=== PATIENT | female | born 1995 | race Hispanic/Latino ===

== ENCOUNTER 2023-03-25 09:03 | Inpatient (IN) | payer BC ==
[~2023-03-25] VITALS: Ht 162.6 cm; Wt 84.1 kg
[2023-03-25] MEDS ORDERED: 0.9%NACL 1000ML 1,000 ML IV ONE (09:30)
[2023-03-25] MEDS ORDERED: ONDANSETRON 4MG INJ IVP ONE (09:30)
[2023-03-25 09:44] LABS: APPEARANCE,URINE CLOUDY (CLEAR); BILIRUBIN,URINE 0.5 mg/dL (NEGATIVE); COLOR,URINE YELLOW (YELLOW); GLUCOSE, URINE (UA) 150 mg/dL (NEGATIVE); KETONES,URINE 60 mg/dL (NEGATIVE); LEUKOCYTE ESTERASE ,URINE 25 Leu/uL (NEGATIVE); NITRATE,URINE NEGATIVE (NEGATIVE); OCCULT BLOOD,URINE MODERATE (NEGATIVE); PROTEIN,URINE 30 mg/dL (NEGATIVE); UROBILINOGEN,URINE 0.2 mg/dL (0.2-1.0)
[2023-03-25 09:53] LABS: BACTERIA,URINE FEW /HPF (None Seen); MUCUS,URINE MANY LPF (None Seen); SQUAMOUS EPITHELIAL CELL,UR MANY /HPF (0-2)
[2023-03-25 10:16] LABS: BASOPHILS % (AUTO) 0.3 % (0.0-5.0); CREATININE 0.6 mg/dL (0.5-1.5); EOSINOPHILS % (AUTO) 0.5 % (0.0-8.0); HEMATOCRIT 36.4 % (36-48); LYMPHOCYTES % (AUTO) 17.3 % (21.0-51.0); MEAN CORPUSCULAR HEMOGLOBIN 31.5 pg (27.0-33.0); MEAN CORPUSCULAR HGB CONC 34.6 g/dL (32.0-36.0); MONOCYTES % (AUTO) 8.3 % (3.0-13.0); NEUTROPHILS % (AUTO) 73.3 % (40.0-77.0); PLATELET COUNT (AUTO) 161 K/uL (130-400); POTASSIUM 4.6 mmol/L (3.5-5.1); WHITE BLOOD COUNT (AUTO) 9.1 K/uL (4.8-10.8)
[2023-03-25 10:22] LABS: ALBUMIN 3.4 g/dL (3.5-5.0); TOTAL PROTEIN, SERUM 7.1 g/dL (6.0-8.3)
[2023-03-25] MEDS ORDERED: MORPHINE 4 MG SYG IVP STA (11:13)
[2023-03-25] MEDS ORDERED: ONDANSETRON 4MG INJ IVP STA (11:13)
[2023-03-25] MEDS ORDERED: MORPHINE 2 MG SYG IVP ONE (14:30)
[2023-03-25] MEDS: CEFTRIAXONE 1G VIAL IV SCH (18:13)
[2023-03-25] MEDS: LACTATED RINGERS 1000ML 1,000 ML IV SCH ×2 (18:13→20:20)
[2023-03-25] MEDS: ONDANSETRON 4MG INJ IV PRN (18:18)
[2023-03-25] MEDS: METRONIDAZOLE 250MG/50ML 50 ML IV SCH (20:20)
[2023-03-25] MEDS: MORPHINE 2 MG SYG IVP PRN (22:54)
[2023-03-25 23:30] VITALS: BP 127/73
[2023-03-26] MEDS: ACETAMINOPHEN 325 MG TAB PO PRN ×2 (00:28→17:26)
[2023-03-26] MEDS ORDERED: METRONIDAZOLE 500MG/100ML BAG 100 ML ONE (00:55)
[2023-03-26] MEDS: METRONIDAZOLE 250MG/50ML 50 ML IV SCH ×3 (00:57→17:26)
[2023-03-26] MEDS ORDERED: NORE-89 PO (01:04)
[2023-03-26 03:53] VITALS: BP 127/63
[2023-03-26 05:20] LABS: HEMATOCRIT 30.9 % (36-48); MEAN CORPUSCULAR VOLUME 91.2 fL (79-99); RED BLOOD CELL COUNT(AUTO) 3.39 MIL/uL (4.00-5.50); RED CELL DISTRIBUTION WIDTH 13.2 % (11.0-15.5); WHITE BLOOD COUNT (AUTO) 5.5 K/uL (4.8-10.8)
[2023-03-26 05:36] LABS: BILIRUBIN,DIRECT 1.3 mg/dL (0.0-0.3); MAGNESIUM 1.6 mg/dL (1.80-2.40); TOTAL PROTEIN, SERUM 6.2 g/dL (6.0-8.3)
[2023-03-26] MEDS: ONDANSETRON 4MG INJ IV PRN ×2 (05:47→20:35)
[2023-03-26] MEDS: MORPHINE 2 MG SYG IVP PRN ×2 (06:18→20:37)
[2023-03-26] MEDS ORDERED: POTASSIUM CHLORIDE 10% ELIXIR 20 MEQ/15 ML UDCUP PO PRN (07:30)
[2023-03-26] MEDS ORDERED: POTASSIUM CHLORIDE 20MEQ/100ML 100 ML IV PRN (07:30)
[2023-03-26 08:42] VITALS: BP 130/61
[2023-03-26] MEDS: LACTATED RINGERS 1000ML 1,000 ML IV SCH ×2 (10:01→23:27)
[2023-03-26] MEDS: MAGNESIUM 2GM PREMIX 50ML 50 ML IV PRN (10:09)
[2023-03-26 11:43] VITALS: BP 127/66
[2023-03-26] MEDS ORDERED: COMPOUND IV MISC 1 EACH IVSOLN MISC PRN (12:00)
[2023-03-26] MEDS ORDERED: GADOTERATE MEGLUMINE 10 MMOL/20 ML VIAL IV ONE (13:13)
[2023-03-26 16:00] VITALS: BP 142/85
[2023-03-26] MEDS: CEFTRIAXONE 1G VIAL IV SCH (17:26)
[2023-03-26 20:00] VITALS: BP 97/53
[2023-03-27] VITALS: BP 121/71
[2023-03-27] MEDS: METRONIDAZOLE 250MG/50ML 50 ML IV SCH ×3 (01:02→17:30)
[2023-03-27] MEDS: MORPHINE 2 MG SYG IVP PRN ×3 (01:29→23:21)
[2023-03-27 04:15] VITALS: BP 120/70
[2023-03-27 06:42] LABS: BASOPHILS % (AUTO) 0.4 % (0.0-5.0); EOSINOPHILS % (AUTO) 1.6 % (0.0-8.0); HEMATOCRIT 31.2 % (36-48); LYMPHOCYTES % (AUTO) 35.9 % (21.0-51.0); MEAN CORPUSCULAR HEMOGLOBIN 30.9 pg (27.0-33.0); MEAN CORPUSCULAR HGB CONC 33.7 g/dL (32.0-36.0); MEAN CORPUSCULAR VOLUME 91.8 fL (79-99); MONOCYTES % (AUTO) 12.1 % (3.0-13.0); NEUTROPHILS % (AUTO) 49.8 % (40.0-77.0); PLATELET COUNT (AUTO) 248 K/uL (130-400); RED CELL DISTRIBUTION WIDTH 13.5 % (11.0-15.5); WHITE BLOOD COUNT (AUTO) 5.7 K/uL (4.8-10.8)
[2023-03-27 07:00] LABS: ALBUMIN 3.1 g/dL (3.5-5.0); BILIRUBIN,DIRECT 1.7 mg/dL (0.0-0.3); TOTAL PROTEIN, SERUM 6.5 g/dL (6.0-8.3)
[2023-03-27 07:13] LABS: INR 0.96 (0.85-1.15); PROTHROMBIN TIME 10.5 SEC (9.6-11.6)
[2023-03-27] MEDS ORDERED: IOHEXOL-350 50ML VIAL IV ONE (07:57)
[2023-03-27] MEDS: LACTATED RINGERS 1000ML 1,000 ML IV SCH ×2 (09:00→19:00)
[2023-03-27 09:10] VITALS: BP 120/70
[2023-03-27] MEDS ORDERED: PROPOFOL 10 MG/ML 20ML VIAL IV ONE ×2 (09:24→09:36)
[2023-03-27] MEDS ORDERED: MIDAZOLAM HCL 1 MG/ML 2ML VIAL ONE (09:24)
[2023-03-27] MEDS ORDERED: SUCCINYLCHOLINE 200MG/10ML SYR ONE (09:25)
[2023-03-27] MEDS ORDERED: FENTANYL CITRATE PF 50 MCG/1 ML 2ML VIAL ONE (09:26)
[2023-03-27] MEDS ORDERED: MEPERIDINE-PF 25 MG/ML SYG ONE (10:52)
[2023-03-27 12:00] VITALS: BP 116/54
[2023-03-27] MEDS ORDERED: HYDROMORPHONE 0.5 MG SYG (0.5MG/0.5ML) IVP ONE (15:30)
[2023-03-27] MEDS ORDERED: 0.9%NACL 1000ML 1,000 ML IV ONE (15:58)
[2023-03-27 16:00] VITALS: BP 120/75
[2023-03-27] MEDS: CEFTRIAXONE 1G VIAL IV SCH (17:29)
[2023-03-27 20:00] VITALS: BP 125/73
[2023-03-27] MEDS: ONDANSETRON 4MG INJ IV PRN (23:21)
[2023-03-28] VITALS (23 sets, daily range): BP systolic 99–137; BP diastolic 41–76
[2023-03-28] MEDS: METRONIDAZOLE 250MG/50ML 50 ML IV SCH ×3 (01:13→17:54)
[2023-03-28] MEDS ORDERED: HYDROMORPHONE 0.5 MG SYG (0.5MG/0.5ML) IVP ONE (02:30)
[2023-03-28 05:55] LABS: BASOPHILS % (AUTO) 0.3 % (0.0-5.0); EOSINOPHILS % (AUTO) 0.9 % (0.0-8.0); HEMATOCRIT 30.6 % (36-48); LYMPHOCYTES % (AUTO) 26.5 % (21.0-51.0); MEAN CORPUSCULAR HEMOGLOBIN 31.7 pg (27.0-33.0); MEAN CORPUSCULAR HGB CONC 35.3 g/dL (32.0-36.0); MEAN CORPUSCULAR VOLUME 89.7 fL (79-99); MONOCYTES % (AUTO) 10.4 % (3.0-13.0); NEUTROPHILS % (AUTO) 61.8 % (40.0-77.0); PLATELET COUNT (AUTO) 238 K/uL (130-400); RED BLOOD CELL COUNT(AUTO) 3.41 MIL/uL (4.00-5.50); RED CELL DISTRIBUTION WIDTH 13.2 % (11.0-15.5); WHITE BLOOD COUNT (AUTO) 6.9 K/uL (4.8-10.8)
[2023-03-28] MEDS: LACTATED RINGERS 1000ML 1,000 ML IV SCH ×2 (06:34→16:14)
[2023-03-28 06:38] LABS: ALBUMIN 3.2 g/dL (3.5-5.0); CREATININE 0.6 mg/dL (0.5-1.5); MAGNESIUM 1.8 mg/dL (1.80-2.40); POTASSIUM 3.2 mmol/L (3.5-5.1); TOTAL PROTEIN, SERUM 6.6 g/dL (6.0-8.3)
[2023-03-28] MEDS ORDERED: PROPOFOL 10 MG/ML 20ML VIAL IV ONE (08:55)
[2023-03-28] MEDS ORDERED: MIDAZOLAM HCL 1 MG/ML 2ML VIAL ONE (08:55)
[2023-03-28] MEDS ORDERED: ONDANSETRON 4MG INJ ONE ×3 (08:55→12:33)
[2023-03-28] MEDS ORDERED: FENTANYL CITRATE PF 50 MCG/1 ML 2ML VIAL ONE ×2 (08:56→10:28)
[2023-03-28] MEDS ORDERED: ROCURONIUM 10MG/1ML SYR 10 MG/ML ML ONE (08:56)
[2023-03-28] MEDS ORDERED: ROPIVACAINE 0.5% 5MG/ML 30ML IJ ONE (09:29)
[2023-03-28] MEDS ORDERED: INDOCYANINE GREEN 25 MG VIAL IJ ONE (09:36)
[2023-03-28] MEDS ORDERED: DEXAMETHASONE SOD PHOSPHATE 10MG/ML 1ML VIAL ONE (10:27)
[2023-03-28] MEDS ORDERED: DEXAMETHASONE SOD PHOSPHATE 4 MG/ML 1ML VIAL ONE (10:28)
[2023-03-28] MEDS ORDERED: CEFAZOLIN SODIUM 1 GM VIAL ONE (10:28)
[2023-03-28] MEDS ORDERED: GLYCOPYRROLATE 1 MG/5 ML SYRINGE ONE (11:43)
[2023-03-28] MEDS ORDERED: NEOSTIGMINE 5MG/5ML SYR IV ONE (11:44)
[2023-03-28] MEDS: MORPHINE 2 MG SYG IVP PRN ×2 (15:16→19:31)
[2023-03-28] MEDS: CEFTRIAXONE 1G VIAL IV SCH (16:10)
[2023-03-28] MEDS: KCL 20 MEQ ERTAB PO PRN (17:56)
[2023-03-29] VITALS: BP 130/74
[2023-03-29] MEDS: MORPHINE 2 MG SYG IVP PRN ×2 (00:13→03:57)
[2023-03-29] MEDS: LACTATED RINGERS 1000ML 1,000 ML IV SCH (01:52)
[2023-03-29] MEDS: METRONIDAZOLE 250MG/50ML 50 ML IV SCH ×2 (01:53→08:27)
[2023-03-29 04:00] VITALS: BP 134/71
[2023-03-29 06:02] LABS: BASOPHILS % (AUTO) 0.1 % (0.0-5.0); HEMATOCRIT 31.7 % (36-48); LYMPHOCYTES % (AUTO) 14.8 % (21.0-51.0); MEAN CORPUSCULAR HEMOGLOBIN 31.5 pg (27.0-33.0); MEAN CORPUSCULAR HGB CONC 34.4 g/dL (32.0-36.0); MEAN CORPUSCULAR VOLUME 91.6 fL (79-99); MONOCYTES % (AUTO) 10.6 % (3.0-13.0); PLATELET COUNT (AUTO) 262 K/uL (130-400); RED BLOOD CELL COUNT(AUTO) 3.46 MIL/uL (4.00-5.50); RED CELL DISTRIBUTION WIDTH 13.4 % (11.0-15.5); WHITE BLOOD COUNT (AUTO) 8.5 K/uL (4.8-10.8)
[2023-03-29 06:30] LABS: BILIRUBIN,DIRECT 0.9 mg/dL (0.0-0.3); CREATININE 0.6 mg/dL (0.5-1.5); MAGNESIUM 1.8 mg/dL (1.80-2.40); POTASSIUM 3.5 mmol/L (3.5-5.1); TOTAL PROTEIN, SERUM 6.6 g/dL (6.0-8.3)
[2023-03-29 08:00] VITALS: BP 121/70
[2023-03-29] MEDS: KCL 20 MEQ ERTAB PO PRN ×2 (08:27→10:36)
[2023-03-29] MEDS: MAGNESIUM 2GM PREMIX 50ML 50 ML IV PRN (10:35)
[2023-03-29 11:38] VITALS: BP 127/70
== END 2023-03-29 15:40 | disposition home or self-care (01) | DRG 418 ==
LOC: EDH 09:03 → EDHIP 16:45 → 3CH 23:30
PROVIDERS: ADMIT Internal Medicine; ATTEND Internal Medicine
PROC: 0FC98ZZ Extirpation of Matter from Common Bile Duct, Via Natural or Artificial Opening Endoscopic (ICD-10-PCS; 2023-03-27)
PROC: 8E0W4CZ Robotic Assisted Procedure of Trunk Region, Percutaneous Endoscopic Approach (ICD-10-PCS; 2023-03-28)
PROC: 0FT44ZZ Resection of Gallbladder, Percutaneous Endoscopic Approach (ICD-10-PCS; principal; 2023-03-28 10:01)
DX: K80.70 Calculus of gallbladder and bile duct without cholecystitis without obstruction (principal); N39.0 Urinary tract infection, site not specified; R74.01 Elevation of levels of liver transaminase levels; K66.0 Peritoneal adhesions (postprocedural) (postinfection); Z20.822 Contact with and (suspected) exposure to COVID-19
CPT/HCPCS: 36415; 43262; 43264; 74176; 74183; 74328; 74330; 76705; 80053; 80076; 81001; 82248; 82948; 83690; 83735; 84702; 85025; 85027; 85610; 87088; 87426; A4606; C1769; C1773; G0378; J0330; J0690; J0696; J1100; J1170; J2175; J2250; J2270; J2405; J2704; J2710; J2795; J3010; J3475; J3480; J3490; J7030; J7120; Q9967